=== PATIENT | male | born 1965 | race Caucasian/White ===

== ENCOUNTER 2021-04-13 00:22 | Emergency (ER) | payer OTHER ==
[~2021-04-13] VITALS: Ht 165.1 cm; Wt 72.6 kg
[2021-04-13 00:30] VITALS: BP 141/90
--- NOTE | 2021-04-13 00:30 | NUR ---
to bed ambulatory
--- NOTE | 2021-04-13 00:45 | NUR ---
Pt bib self for c/o 5/10 pain s/p insect bite to right wrist x 1 hour ago. Pt reports he took his puppy outside when he started to jump in the garden, and when he went to retrieve the puppy he felt a sharp pain on his right wrist and noticed an insect bite. Insect bite noted to right wrist with redness and swelling, no discharge noted. Pt reports he applied alcohol to site to clean it. Pt is able to move wrist without difficulty. Denies numbness or tingling. med hx: DM allergies: nka
--- NOTE | 2021-04-13 01:10 | NUR ---
ERMD AT BEDSIDE.
[2021-04-13] MEDS ORDERED: BENC TP (01:18)
[2021-04-13] MEDS ORDERED: CEPH-588 PO (01:18)
[2021-04-13] MEDS ORDERED: AMOXICILLIN 500 MG CAP PO ONE (01:20)
[2021-04-13] MEDS ORDERED: IBUPROFEN 400 MG TAB PO ONE (01:20)
[2021-04-13 02:02] VITALS: BP 141/90
--- NOTE | 2021-04-13 02:02 | NUR ---
Patient discharged with v/s stable. Written and verbal after care instructions given and explained. Patient alert, oriented and verbalized understanding of instructions. Ambulatory with steady gait. All questions addressed prior to discharge. ID band removed. Patient advised to follow up with PMD. Rx of KEFLEX AND BENADRYL ITCH STOPPING CREAM given. Patient educated on indication of medication including possible reaction and side effects. Opportunity to ask questions provided and answered.
== END 2021-04-13 02:02 | disposition home or self-care (01) ==
LOC: MED 00:22
DX: S60.861A Insect bite (nonvenomous) of right wrist, initial encounter (principal); F03.90 Unspecified dementia, unspecified severity, without behavioral disturbance, psychotic disturbance, mood disturbance, and anxiety; W57.XXXA Bitten or stung by nonvenomous insect and other nonvenomous arthropods, initial encounter; Y93.89 Activity, other specified; Y92.89 Other specified places as the place of occurrence of the external cause; Y99.8 Other external cause status
CPT/HCPCS: 90471; 90715; 99284; Q0163